=== PATIENT | female | born 1965 | race African-American/Black ===

== ENCOUNTER → 2016-12-03 | Day surgery (SDC) | payer BC ==
[~2016-12-03] VITALS: Ht 154.9 cm; Wt 88.0 kg
[~2016-12-03] MED LIST: BUPIVACAINE HCL PF 0.5% 30 ML VIAL ONE; CHLORHEXIDINE GLUCONATE 2 % 1 PACK (2 CLOTHS) TOPICAL PRN; DEXT 5%-NACL 0.45% 1000 ML INJ 1,000 ML IV SCH; FURO20TA PO; IBUP800T23 PO; INSULIN HUMAN REGULAR 1,000 UNITS/10 ML VIAL SQ PRN; LACTATED RINGER'S 1000 ML IV PRN; LISI-515 PO; METOPROLOL TARTRATE 25 MG TAB PO PRN; MIDAZOLAM HCL 2 MG/2 ML VIAL ONE; ONDANSETRON HCL 4 MG/2 ML VIAL IV PUSH ONE; POVIDONE IODINE 10% OINT 1 PACKET TOPICAL ONE; POVIDONE IODINE 5% (ANTISEPSIS KIT) 4 APPLICATIONS EACH NARE PRN; PROPOFOL 200 MG/20 ML AMP IV ONE; SODIUM CHLORID 0.9% 500 ML IV PRN; SODIUM CHLORIDE 0.9% FLUSH 5 ML FLUSH IVF PRN; SODIUM CHLORIDE 0.9% FLUSH 5 ML FLUSH IVF SCH; ceFAZolin 2 GM PREMIX 50 ML IV SCH
[2016-12-03 07:04] VITALS: BP 124/85; PULSE 78; RESP 18; TEMP 98.4; O2SAT 99
[2016-12-03 07:04] LABS: HEMATOCRIT 36.1 % (35.0-46.0); MEAN CELL VOLUME 81.5 FL (80.0-100.0); MEAN CORPUSCULAR HEMOGLOBIN 26.7 PG (27.0-34.0); MEAN CORPUSCULAR HGB CONC 32.8 % (32.0-36.0); PLATELET COUNT 243 TH/MM3 (150-450); RED BLOOD COUNT 4.43 MIL/MM3 (4.00-5.30); RED CELL DISTRIBUTION WIDTH 13.8 % (11.6-17.2); REVIEW FLAG FINAL; WHITE BLOOD COUNT 6.5 TH/MM3 (4.0-11.0)
--- NOTE | 2016-12-03 07:55 | HP.UPD ---
H&P Update Date: Dec 03, 2016 Note The Pre-Admit History and Physical Examination regarding the above named patient was reviewed (including, but not limited to, vital signs, medications, allergies, co-morbid conditions), and upon re-examination it is noted that: Indicated with "X" x - the patient's condition has not significantly changed since the last examination. [] - the patient's condition has changed since the last examination. Changes: Mihaela King MD Dec 03, 2016 07:54
[2016-12-03 09:08] VITALS: PULSE 80
--- NOTE | 2016-12-03 09:14 | HHI.PR ---
Immediate Post Op Note Procedure Date: Dec 03, 2016 Pre Op Diagnosis: (1) Right carpal tunnel syndrome Post Op Diagnosis: (1) Right carpal tunnel syndrome Surgeon: Mihaela King Rag Boiler(s): None. Procedure: Open release of the right carpal tunnel. Anesthesia: General Drains: None Tourniquet time (min at mmHg) 24 minutes at 220 mm Hg. Patient to: PACU Patient Condition: Good Date/Time of Procedure: SEE SURGICAL CARE RECORD Mihaela King MD Dec 03, 2016 09:14
[2016-12-03 09:45] VITALS: PULSE 66; TEMP 97.8
[2016-12-03 10:20] VITALS: BP 108/77; PULSE 66; RESP 14; O2SAT 99
--- NOTE | 2016-12-03 13:25 | EKG ---
Date Performed: 12/03/2016 Time Performed: 07:17:15 PTAGE: 51 years EKG: Sinus rhythm WITH FIRST DEGREE AV BLOCK MODERATE VOLTAGE CRITERIA FOR LVH, CONSIDER NORMAL VARIANT ABNORMAL ECG NO PREVIOUS TRACING DOCTOR: Arslan Lacey Interpretating Date/Time 12/03/2016 13:22:47
--- NOTE | 2016-12-03 21:47 | MP ---
cc: MAME LU MD DATE OF SURGERY 12/03/2016 PREOPERATIVE DIAGNOSIS Right carpal tunnel syndrome. POSTOPERATIVE DIAGNOSIS Right carpal tunnel syndrome. PROCEDURE Open release of the right carpal tunnel. ANESTHESIA General SURGEON Dr. Vanita Lu INDICATIONS A 51-year-old female with right carpal tunnel syndrome for release. FINDINGS The patient had a severely tight tunnel with compression of the nerve and swelling of the nerve proximal to the compression. At the completion of the procedure, the nerve was completely released. Tourniquet time was 24 minutes. PROCEDURE IN DETAIL The patient was seen preoperatively where the site and side were identified and marked. The patient was then taken to the operating room, placed in a supine position. Her identity was checked against the arm band and the consent form. Site and side confirmed, time-out called prior to beginning the procedure. The right upper extremity was prepped with Hibiclens and draped in the usual sterile fashion. The area to be incised was outlined with a marking pen as a longitudinal incision just to the ulnar side of the midline. The arm was exsanguinated and the tourniquet inflated to 220 mmHg. Bupivacaine 0.5% plain was used to make a median nerve block. A 15 blade was used to make the incision down through the skin down to the subcutaneous tissue down to the palmar fascia. Distally a small hole was poked in the palmar fascia and using the ulnar artery as a guide, Guyon's canal was released. The ulnar artery was retracted ulnarly. The median nerve retracted medially and using the flexor tendon and the ring finger as a guide, the transverse carpal ligament was divided. Once the forearm fascia was reached, the scissor was kept in a slightly open position and, using the push technique, the forearm fascia was released for approximately 2-3 cm into the distal forearm. The nerve was then carefully from the roof of the tunnel and epineurolysis was performed. Once the nerve was mobilized and there was no further thickened epineurium, the wound was copiously irrigated with saline, injected with additional bupivacaine at the operated area and closed with running 4-0 nylon suture. The tourniquet was released after 24 minutes of tourniquet time. Pressure was applied. After several minutes, there was no evidence of any oozing and a dressing was applied using povidone-iodine ointment, Adaptic, Telfa, 4x4s and hand wrap. The patient was then taken from the operating room to the recovery room in satisfactory condition having tolerated the procedure well. Postoperative instructions include keeping the arm elevated, keeping it clean and dry and returning in several days for follow up. MD MC Chapa/ /9:21 AM /9:44 PM
== END | disposition home or self-care (01) ==
LOC: PHSDC 06:09
PROVIDERS: ATTEND Specialist
DX: G56.01 Carpal tunnel syndrome, right upper limb (principal); I10 Essential (primary) hypertension; Z01.810 Encounter for preprocedural cardiovascular examination; Z01.818 Encounter for other preprocedural examination
CPT/HCPCS: 01810; 36415; 64721; 85027; 93005; J0690; J2250; J2405; J3010; J7120

== ENCOUNTER → 2016-12-10 | Day surgery (SDC) | payer BC ==
[~2016-12-10] VITALS: Ht 154.9 cm; Wt 88.2 kg
[~2016-12-10] MED LIST changes: -POVIDONE IODINE 10% OINT 1 PACKET TOPICAL ONE; -ceFAZolin 2 GM PREMIX 50 ML IV SCH; +ceFAZolin 2 GM PREMIX 50 ML ONE
[2016-12-10 07:53] VITALS: BP 129/87; PULSE 63; RESP 20; TEMP 98.2; O2SAT 100
--- NOTE | 2016-12-10 07:57 | HP.UPD ---
H&P Update Date: Dec 10, 2016 Note The Pre-Admit History and Physical Examination regarding the above named patient was reviewed (including, but not limited to, vital signs, medications, allergies, co-morbid conditions), and upon re-examination it is noted that: Indicated with "X" x - the patient's condition has not significantly changed since the last examination. [] - the patient's condition has changed since the last examination. Changes: Mihaela King MD Dec 10, 2016 07:56
--- NOTE | 2016-12-10 10:05 | HHI.PR ---
Immediate Post Op Note Procedure Date: Dec 10, 2016 Pre Op Diagnosis: (1) Left carpal tunnel syndrome Post Op Diagnosis: (1) Left carpal tunnel syndrome Surgeon: Mihaela King Convention Services Manager(s): None Procedure: Endoscopic release of the left carpal tunnel Anesthesia: General Drains: None Tourniquet time (min at mmHg) 12 minutes using the Hemaclear Patient to: PACU Patient Condition: Good Date/Time of Procedure: SEE SURGICAL CARE RECORD Mihaela King MD Dec 10, 2016 10:05
[2016-12-10 11:20] VITALS: BP 111/74; PULSE 69; RESP 16; TEMP 97.9; O2SAT 96
--- NOTE | 2016-12-10 14:24 | MP ---
cc: MAME LU M.D. DATE OF SURGERY: 12/10/2016 PREOPERATIVE DIAGNOSIS Left carpal tunnel syndrome. POSTOPERATIVE DIAGNOSIS Left carpal tunnel syndrome. PROCEDURE Endoscopic release of the left carpal tunnel. ANESTHESIA General. SURGEON Dr. Lu INDICATIONS A 51-year-old female with left carpal tunnel syndrome for release. FINDINGS At the completion of the procedure the transverse carpal ligament had been completely divided. TOURNIQUET TIME 12 minutes using a HemaClear. DETAILS OF PROCEDURE The patient was seen preoperatively where the site and side were identified and marked. The patient was then taken to the operating room, placed in a supine position. Her identity was checked against the arm band and the consent form, site and side confirmed. A timeout was called prior to beginning the procedure. The left upper extremity was prepped with Hibiclens and draped in the usual sterile fashion. The area to be incised was outlined with a marking pen as a transverse incision in the distal forearm, 1.5 cm proximal to the distal wrist crease. The distal edge of the transverse carpal ligament was identified and marked. The arm was then simultaneously exsanguinated and the tourniquet placed using the HemaClear. Bupivacaine 0.5% plain was used to make a median nerve block. A #15 blade was then used to make the incision down through the skin down through the subcutaneous tissue down to the forearm fascia. Using a spread technique the forearm fascia was entered and elevated. The synovial elevator was then used to identify the transverse carpal ligament as well as clean the synovium from it. The obturator cannula apparatus was then introduced into the wound and then just distal to the transverse carpal ligament popped through the palmar fascia into the subcutaneous plane where a separate incision was made and the entire apparatus was delivered. The obturator was removed leaving the cannula in place. The scope was then passed from distal to proximal identifying the transverse carpal ligament. Then under direct vision using the scope the transverse carpal ligament was divided. The obturator was then placed back in the cannula and the entire apparatus was removed. A forearm fasciotomy was then carried out for 2 or 3 cm proximal to the distal wrist incision under direct vision. Additional anesthetic was injected and the wounds were closed with Dermabond. Once the glue had dried in several layers Steri-Strips were applied and the tourniquet was removed after 12 minutes of tourniquet time. Pressure was applied. After several minutes there was no evidence of any swelling or oozing and a dressing was applied using 4x4s and hand wrap. The patient was then taken from the operating room to the recovery room in satisfactory condition having tolerated the procedure well. Postoperative instructions include keeping the arm elevated, keeping it clean and dry and returning in several days for follow-up. MD MC Chapa/NITIN /10:12 AM /2:13 PM
== END | disposition home or self-care (01) ==
LOC: PHSDC 06:47
PROVIDERS: ATTEND Specialist
DX: G56.02 Carpal tunnel syndrome, left upper limb (principal); I10 Essential (primary) hypertension
CPT/HCPCS: 01810; 29848; J0690; J2250; J2405; J3010; J7120